=== PATIENT | female | born 1990 | race Caucasian/White ===

== ENCOUNTER 2022-11-29 16:48 | Day surgery (SDC) | payer OTHER ==
[2022-11-29] MEDS ORDERED: hydrALAZINE 20 MG/ML VIAL SLOW IVP PRN (17:22)
[2022-11-29 18:02] VITALS: BMI 27.8
[2022-11-29] MEDS ORDERED: Promethazine HCl 12.5 MG SUPP PR PRN (18:16)
[2022-11-29 19:13] LABS: Bilirubin Neg (Negative); Blood, Urine Negative (Negative); Clarity Clear (Clear); Glucose, Urine (Dipstick) Normal (Negative); Ketone, Urine Negative (Negative); Leukocyte Negative (Negative); Nitrite Negative (Negative); Protein, Urine (Dipstick) Negative (Neg-Trace); Urobilinogen Normal mg/dL (Less than 2); pH, Urine 6.5 (5.0-9.0)
[2022-11-29 19:36] LABS: Bacteria/HPF Rare-Few HPF (None Seen); RBC/HPF None Seen HPF (0-3); Squamous Epithelial 0-3 HPF (0-3); WBC/HPF 0-3 HPF (0-3)
[2022-11-29 19:49] LABS: ALT (SGPT) 19 U/L (8-55); AST (SGOT) 15 U/L (5-34); Albumin 3.3 g/dL (3.5-5.0); Alkaline Phosphatase 102 U/L (40-110); Anion Gap 13 mmol/L (10-20); BUN (Urea Nitrogen) 8 mg/dL (7.0-18.7); Bilirubin, Total 0.3 mg/dL (0.2-1.2); Calc. Creatinine Clearance 145 mL/min (70-130); Calcium 8.9 mg/dL (7.8-10.44); Carbon Dioxide 22 mmol/L (22-29); Chloride 106 mmol/L (98-107); Estimated GFR 121; Globulin 3.2 g/dL (2.4-3.5); Glucose 93 mg/dL (70-105); Lipase 39 U/L (8-78); Potassium 3.9 mmol/L (3.5-5.1); Protein, Total 6.5 g/dL (6.0-8.3); Sodium 137 mmol/L (136-145)
== END 2022-11-29 20:43 | disposition home or self-care (01) ==
LOC: CSHLD/OP 16:48
PROVIDERS: ATTEND Family Medicine
DX: O36.8330 Maternal care for abnormalities of the fetal heart rate or rhythm, third trimester, not applicable or unspecified (principal); R00.0 Tachycardia, unspecified; O24.419 Gestational diabetes mellitus in pregnancy, unspecified control; O99.213 Obesity complicating pregnancy, third trimester; O98.313 Other infections with a predominantly sexual mode of transmission complicating pregnancy, third trimester; A60.9 Anogenital herpesviral infection, unspecified; E66.01 Morbid (severe) obesity due to excess calories; E66.9 Obesity, unspecified; O99.613 Diseases of the digestive system complicating pregnancy, third trimester; K21.9 Gastro-esophageal reflux disease without esophagitis; Z87.891 Personal history of nicotine dependence; Z79.899 Other long term (current) drug therapy; Z28.39 Other underimmunization status; Z3A.36 36 weeks gestation of pregnancy
CPT/HCPCS: 36415; 80053; 81001; 83690; 87086

== ENCOUNTER 2022-12-20 19:17 | Emergency (ER) | payer OTHER ==
[2022-12-20] MEDS ORDERED: Dexamethasone 4 MG TAB ONE (23:06)
== END 2022-12-20 23:12 | disposition home or self-care (01) ==
LOC: CSHERS 19:17
DX: O99.891 Other specified diseases and conditions complicating pregnancy (principal); H66.91 Otitis media, unspecified, right ear; H60.91 Unspecified otitis externa, right ear; Z3A.39 39 weeks gestation of pregnancy
CPT/HCPCS: 99282; J8540

== ENCOUNTER 2022-12-22 15:07 | Day surgery (SDC) | payer OTHER ==
[2022-12-22 15:31] VITALS: BMI 47.5
[2022-12-22] MEDS ORDERED: hydrALAZINE 20 MG/ML VIAL SLOW IVP PRN (16:54)
[2022-12-22 18:04] LABS: Fetal Membranes Rupture No Membranes Rupture (No Rupture)
== END 2022-12-22 20:05 | disposition home or self-care (01) ==
LOC: CSHLD/OP 15:07
PROVIDERS: ATTEND Family Medicine
DX: O47.1 False labor at or after 37 completed weeks of gestation (principal); Z03.71 Encounter for suspected problem with amniotic cavity and membrane ruled out; O24.419 Gestational diabetes mellitus in pregnancy, unspecified control; O99.213 Obesity complicating pregnancy, third trimester; E66.9 Obesity, unspecified; O99.613 Diseases of the digestive system complicating pregnancy, third trimester; K21.9 Gastro-esophageal reflux disease without esophagitis; O98.313 Other infections with a predominantly sexual mode of transmission complicating pregnancy, third trimester; A60.00 Herpesviral infection of urogenital system, unspecified; Z87.891 Personal history of nicotine dependence; Z3A.39 39 weeks gestation of pregnancy; Z79.899 Other long term (current) drug therapy
CPT/HCPCS: 84112; 99283

== ENCOUNTER 2022-12-23 01:32 | Inpatient (IN) | payer OTHER ==
[2022-12-23 02:03] VITALS: BMI 47.5
[2022-12-23] MEDS ORDERED: Fentanyl 100 MCG/2 ML VIAL SLOW IVP SCH ×2 (02:54→05:00)
[2022-12-23] MEDS ORDERED: hydrALAZINE 20 MG/ML VIAL SLOW IVP PRN (02:54)
[2022-12-23] MEDS ORDERED: Lactated Ringer's 1,000 ML IV SCH (03:00)
[2022-12-23] MEDS ORDERED: Misoprostol 200 MCG TAB PR PRN (08:45)
[2022-12-23] MEDS ORDERED: CEFAZOLIN 2 GM in Sodium Chloride 0.9% 100 ML IVPB SCH (08:45)
[2022-12-23] MEDS ORDERED: Promethazine HCl 25 MG/ML VIAL IM PRN ×2 (08:45→10:29)
[2022-12-23] MEDS ORDERED: Famotidine/PF 20 mg/2ml Vial SLOW IVP PRN (08:45)
[2022-12-23] MEDS ORDERED: Carboprost 250 MCG/ML AMP IM PRN (08:45)
[2022-12-23] MEDS ORDERED: Methylergonovine 0.2 MG/ML VIAL IM PRN (08:45)
[2022-12-23] MEDS ORDERED: NS w/ Oxytocin 30 units 500 ML IV SCH (08:45)
[2022-12-23] MEDS ORDERED: Tranexamic Acid 1,000 MG/10 ML VIAL IVP PRN (08:45)
[2022-12-23] MEDS ORDERED: Ondansetron PF 4 MG/2 ML Vial IVP PRN ×2 (08:45→10:29)
[2022-12-23] MEDS ORDERED: Bicitra 30 ML UDCUP PO PRN (08:45)
[2022-12-23 09:13] LABS: Hemoglobin 13.1 g/dL (12.0-15.5); Mean Corpuscular HGB CONC 33.8 g/dL (32.0-36.0); Mean Corpuscular Hemoglobin 30.3 pg (27.0-33.0); Mean Corpuscular Volume 89.8 fl (81.6-98.3); Mean Platelet Volume 11.5 fl (7.4-10.4); Platelet Count 393 10x3/uL (150-450); RBC Distribution Width 13.6 % (11.5-14.5); Red Blood Cell (RBC) Count 4.32 10x6/uL (3.90-5.03)
[2022-12-23] MEDS ORDERED: Oxytocin 10 UNITS/ML VIAL ONE ×3 (09:38→11:35)
[2022-12-23] MEDS ORDERED: Phenylephrine 40 MG/NS 250 ML 250 ML ONE (09:38)
[2022-12-23] MEDS ORDERED: Morphine PF 10 MG/10 ML VIAL ONE (09:38)
[2022-12-23] MEDS ORDERED: Ketorolac Tromethamine 30 MG/ML VIAL ONE (09:38)
[2022-12-23] MEDS ORDERED: Dexamethasone 4 mg/ml Vial ONE (09:39)
[2022-12-23] MEDS ORDERED: Metoclopramide HCl 10 MG/2 ML VIAL ONE (09:39)
[2022-12-23] MEDS ORDERED: Ondansetron PF 4 MG/2 ML Vial ONE (09:39)
[2022-12-23 09:44] LABS: SARS-CoV-2 NAA Rapid Test Not Detected (NotDetected)
[2022-12-23] MEDS ORDERED: Ondansetron HCl/PF 4 MG/2 ML Vial IVP PRN (10:29)
[2022-12-23] MEDS ORDERED: Naloxone HCl 0.4 mg/ml Vial IV PRN (10:29)
[2022-12-23] MEDS ORDERED: diphenhydrAMINE 50 MG/ML VIAL IVP PRN (10:29)
[2022-12-23] MEDS ORDERED: Meperidine HCl/PF 25 MG/ML VIAL SLOW IVP PRN (10:29)
[2022-12-23] MEDS ORDERED: Naloxone HCl 0.4 mg/ml Vial IVP PRN ×2 (10:29)
[2022-12-23] MEDS ORDERED: Fentanyl 100 MCG/2 ML VIAL SLOW IVP PRN (10:29)
[2022-12-23] MEDS ORDERED: Promethazine HCl 25 MG SUPP PR PRN (10:29)
[2022-12-23] MEDS ORDERED: Moisturizing Cream (Eucerin) 113 GM JAR TOP PRN (10:29)
[2022-12-23] MEDS ORDERED: Communication Order-Pharmacy FS SCH (10:30)
[2022-12-23] MEDS ORDERED: Lidocaine 2% PF 100 mg/5 ml Syringe ONE (11:05)
[2022-12-23 11:43] LABS: RapidComm Collect By CBN
[2022-12-23 11:45] LABS: RapidComm Collect By CBN; pH (Cord, venous) 7.086 (7.250-7.350)
[2022-12-23 13:23] LABS: Syphilis Antibody Nonreactive (Nonreactive); Syphilis Antibody Index 0.04 S/CO (<1.00 Non-Reactive)
[2022-12-23 13:25] LABS: HBSAg Index 0.14 S/CO (0-0.99); Hep B Surf Ag - L&D Non-Reactive S/CO (NonReactive)
[2022-12-23] MEDS ORDERED: Boostrix 0.5 ML (Tdap) VIAL (>/=7 yrs of age) IM ONE (14:52)
[2022-12-23] MEDS ORDERED: Acetaminophen 325 MG TAB PO PRN (14:52)
[2022-12-23] MEDS: Lactated Ringer's 1,000 ML IV SCH ×2 (15:07→21:50)
[2022-12-23] MEDS: Ketorolac Tromethamine 30 MG/ML VIAL IVP PRN ×2 (15:28→21:48)
[2022-12-23] MEDS: Acyclovir 400 mg Tablet PO SCH ×2 (15:31→22:41)
[2022-12-23] MEDS: Docusate 100 MG CAP PO SCH (21:48)
[2022-12-23] MEDS: Simethicone Chewable 80 MG TAB PO PRN (21:48)
[2022-12-23] MEDS: Polyethylene Glycol 3350 17 GM Packet PO SCH (21:50)
[2022-12-23] MEDS ORDERED: HYDROcodone/Acetaminophen 5/325 mg Tablet PO PRN (23:00)
[2022-12-24 04:17] LABS: Hemoglobin 11.5 g/dL (12.0-15.5); Mean Corpuscular HGB CONC 34.1 g/dL (32.0-36.0); Mean Corpuscular Hemoglobin 30.6 pg (27.0-33.0); Mean Corpuscular Volume 89.6 fl (81.6-98.3); Mean Platelet Volume 10.6 fl (7.4-10.4); Platelet Count 300 10x3/uL (150-450); RBC Distribution Width 13.2 % (11.5-14.5); Red Blood Cell (RBC) Count 3.76 10x6/uL (3.90-5.03); White Blood Cell (WBC) Count 12.9 10x3/uL (3.5-10.5)
[2022-12-24] MEDS: HYDROcodone/Acetaminophen 5/325 mg Tablet PO PRN ×5 (04:37→18:35)
[2022-12-24] MEDS: Lactated Ringer's 1,000 ML IV SCH ×2 (07:20→15:35)
[2022-12-24] MEDS: Docusate 100 MG CAP PO SCH ×2 (07:53→20:38)
[2022-12-24] MEDS: Prenatal Vitamin 1 TAB PO SCH (07:53)
[2022-12-24] MEDS: Acyclovir 400 mg Tablet PO SCH ×3 (07:53→20:39)
[2022-12-24] MEDS: Simethicone Chewable 80 MG TAB PO PRN ×2 (07:53→20:38)
[2022-12-24] MEDS: Polyethylene Glycol 3350 17 GM Packet PO SCH ×2 (08:00→22:11)
[2022-12-24] MEDS: Senokot 8.6 MG TAB PO SCH ×2 (08:49→20:42)
[2022-12-24] MEDS ORDERED: Milk Of Magnesia 30 ML UDCUP PO SCH (09:00)
[2022-12-24] MEDS: Ibuprofen 800 MG TAB PO SCH (20:39)
[2022-12-25] MEDS ORDERED: Acetaminophen 325 MG TAB PO PRN (06:09)
[2022-12-25] MEDS: Lactated Ringer's 1,000 ML IV SCH ×3 (06:18→22:41)
[2022-12-25] MEDS: Ibuprofen 800 MG TAB PO SCH ×3 (06:19→21:24)
[2022-12-25] MEDS: HYDROcodone/Acetaminophen 5/325 mg Tablet PO PRN ×5 (06:20→22:45)
[2022-12-25] MEDS: Simethicone Chewable 80 MG TAB PO PRN (06:21)
[2022-12-25] MEDS: Prenatal Vitamin 1 TAB PO SCH (09:29)
[2022-12-25] MEDS: Docusate 100 MG CAP PO SCH ×2 (09:29→21:23)
[2022-12-25] MEDS: Senokot 8.6 MG TAB PO SCH (09:30)
[2022-12-25] MEDS: Polyethylene Glycol 3350 17 GM Packet PO SCH (09:31)
[2022-12-25] MEDS: Acyclovir 400 mg Tablet PO SCH ×3 (09:46→21:24)
[2022-12-25] MEDS ORDERED: Preparation H Ointment 28 GM TUBE TOP PRN (18:37)
[2022-12-25] MEDS ORDERED: Amoxicillin/Potassium Clav 875 MG TAB PO SCH ×2 (21:00→21:30)
[2022-12-26] MEDS: Ibuprofen 800 MG TAB PO SCH ×2 (05:14→13:43)
[2022-12-26] MEDS: HYDROcodone/Acetaminophen 5/325 mg Tablet PO PRN ×4 (05:15→18:56)
[2022-12-26] MEDS: Lactated Ringer's 1,000 ML IV SCH ×2 (05:53→08:10)
[2022-12-26 07:26] VITALS: BP 120/72; TEMP 97.8
[2022-12-26] MEDS ORDERED: Amoxicillin/Potassium Clav 875 MG TAB PO SCH (09:00)
[2022-12-26] MEDS ORDERED: Sertraline 25 MG TAB PO SCH (09:00)
[2022-12-26] MEDS: Polyethylene Glycol 3350 17 GM Packet PO SCH (09:33)
[2022-12-26] MEDS: Docusate 100 MG CAP PO SCH (09:34)
[2022-12-26] MEDS: Senokot 8.6 MG TAB PO SCH (09:34)
[2022-12-26] MEDS: Prenatal Vitamin 1 TAB PO SCH (09:35)
[2022-12-26] MEDS: Acyclovir 400 mg Tablet PO SCH ×2 (09:35→19:01)
== END 2022-12-26 19:15 | disposition home or self-care (01) | DRG 788 ==
LOC: CSHLD/OP 01:32 → CSHLD 08:41 → CSHPED 14:30
PROVIDERS: ADMIT Emergency Medicine; ATTEND Family Medicine
PROC: 10D00Z1 Extraction of Products of Conception, Low, Open Approach (ICD-10-PCS; principal; 2022-12-23)
DX: O98.52 Other viral diseases complicating childbirth (principal); Z37.0 Single live birth; Z3A.39 39 weeks gestation of pregnancy; Z20.822 Contact with and (suspected) exposure to COVID-19; O99.214 Obesity complicating childbirth; B00.9 Herpesviral infection, unspecified; O99.344 Other mental disorders complicating childbirth; F32.A Depression, unspecified; F41.9 Anxiety disorder, unspecified; O24.420 Gestational diabetes mellitus in childbirth, diet controlled; O34.13 Maternal care for benign tumor of corpus uteri, third trimester; D25.9 Leiomyoma of uterus, unspecified; O69.81X0 Labor and delivery complicated by cord around neck, without compression, not applicable or unspecified; K59.00 Constipation, unspecified; O99.63 Diseases of the digestive system complicating the puerperium; O99.345 Other mental disorders complicating the puerperium; F53.0 Postpartum depression; H66.90 Otitis media, unspecified, unspecified ear; O90.89 Other complications of the puerperium, not elsewhere classified; Z83.79 Family history of other diseases of the digestive system; Z79.899 Other long term (current) drug therapy
CPT/HCPCS: 36415; 36416; 51702; 82805; 84112; 85027; 86780; 86850; 86900; 86901; 87340; 88307; 99285; J1100; J1200; J1885; J2001; J2274; J2405; J2590; J2765; J3010; U0002

== ENCOUNTER 2024-02-14 10:02 | Emergency (ER) | payer MEDICAID, SELFPAY ==
[2024-02-14] MEDS ORDERED: Ondansetron ODT 4 MG TAB ONE (10:57)
== END 2024-02-14 11:21 | disposition home or self-care (01) ==
LOC: CSHERS 10:02
DX: O21.0 Mild hyperemesis gravidarum (principal); Z3A.12 12 weeks gestation of pregnancy
CPT/HCPCS: 99283; Q0162

== ENCOUNTER 2024-02-28 09:42 | Emergency (ER) | payer MEDICAID ==
[2024-02-28 10:38] LABS: #Basophils 0.04 10x3/uL (0.0-0.2); #Eosinphils 0.04 10x3/uL (0.0-0.5); #Monocytes 0.42 10x3/uL (0.0-1.1); #Neutrophils 9.71 10x3/uL (1.5-8.4); %Basophils 0.3 % (0.0-2.0); %Eosinophils 0.3 % (0.0-6.0); %Lymphocytes 14.4 % (18.0-47.0); %Monocytes 3.5 % (0.0-10.0); %Neutrophils 81.1 % (40.0-75.0); Hemoglobin 13.9 g/dL (12.0-15.5); Mean Corpuscular HGB CONC 34.8 g/dL (32.0-36.0); Mean Corpuscular Hemoglobin 30.7 pg (27.0-33.0); Mean Corpuscular Volume 88.3 fL (81.6-98.3); Mean Platelet Volume 10.4 fL (7.4-10.4); Platelet Count 280 10x3/uL (150-450); Red Blood Cell (RBC) Count 4.53 10x6/uL (3.90-5.03)
[2024-02-28 11:05] LABS: Bilirubin Neg (Negative); Blood, Urine 50 (Negative); Clarity Slightly Cloudy (Clear); Glucose, Urine (Dipstick) Normal (Negative); Ketone, Urine 5 mg/dL (Negative); Leukocyte 25 (Negative); Nitrite Negative (Negative); Protein, Urine (Dipstick) 15 mg/dl (Neg-Trace); Urobilinogen Normal mg/dL (Less than 2)
[2024-02-28 11:15] LABS: #Basophils 0.02 10x3/uL (0.0-0.2); #Eosinphils 0.05 10x3/uL (0.0-0.5); #Monocytes 0.51 10x3/uL (0.0-1.1); #Neutrophils 10.62 10x3/uL (1.5-8.4); %Basophils 0.2 % (0.0-2.0); %Eosinophils 0.4 % (0.0-6.0); %Lymphocytes 13.3 % (18.0-47.0); %Monocytes 3.9 % (0.0-10.0); %Neutrophils 81.9 % (40.0-75.0); Hemoglobin 12.9 g/dL (12.0-15.5); Mean Corpuscular HGB CONC 34.9 g/dL (32.0-36.0); Mean Corpuscular Hemoglobin 30.4 pg (27.0-33.0); Mean Corpuscular Volume 87.3 fL (81.6-98.3); Mean Platelet Volume 10.3 fL (7.4-10.4); Platelet Count 296 10x3/uL (150-450); RBC Distribution Width 13.1 % (11.5-14.5); Red Blood Cell (RBC) Count 4.24 10x6/uL (3.90-5.03)
[2024-02-28 11:19] LABS: Bacteria/HPF 1+ HPF (None Seen); CAUTI Indications for Culture Pregnancy; RBC/HPF 0-3 HPF (0-3); WBC/HPF 0-3 HPF (0-3)
[2024-02-28 11:20] LABS: Mucous/LPF 1+ LPF (<2+); Urine Culture Reflex Yes Yes
== END 2024-02-28 13:10 | disposition home or self-care (01) ==
LOC: CSHERS 09:42
DX: O20.0 Threatened abortion (principal); Z3A.09 9 weeks gestation of pregnancy; Z75.3 Unavailability and inaccessibility of health-care facilities
CPT/HCPCS: 36415; 76856; 81001; 84702; 85025; 86900; 86901; 87086